=== PATIENT | female | born 1985 | race American Indian/Alaskan Native ===

== ENCOUNTER 2017-03-30 09:05 | Outpatient (CLI) | payer OTHER ==
--- NOTE | 2017-03-30 11:10 | Fluoroscopy Report ---
Hysterosalpingogram. History: Infertility. Procedure and findings. A vaginal speculum was inserted. The external os was prepped using Betadine. A small caliber catheter was inserted into the endometrial cavity. Omnipaque 300 was injected during fluoroscopic observation. The contour of the endometrial cavity is normal. There is opacification of the fallopian tubes with spillage into the peritoneal cavity bilaterally. Impression: Normal study.
== END 2017-03-30 09:06 | disposition home or self-care (01) ==
LOC: FLUORO 09:05
PROVIDERS: ATTEND Obstetrics & Gynecology Gynecology
DX: N97.9 Female infertility, unspecified (principal)
CPT/HCPCS: 58340; 74740; Q9967

== ENCOUNTER 2017-03-30 17:05 | Inpatient (IN) | payer OTHER ==
--- NOTE | 2017-03-30 17:57 | Emergency Department Report ---
Entered by GREGORY YANEZ, acting as scribe for NANCY CRUZ NP. Chief Complaint: Abdominal Pain Stated Complaint: STOMACH PAIN Time Seen by Provider: 03/30/17 17:46 - HPI History of Present Illness: 31 y/o female presents with constant, crampy and pressure-like, 10/10 solomon- umbilical abd pain that started earlier today after her hystereosalpingogram. Sx include nausea but pt denies vomiting. Medication includes Tylenol with no relief. LMP- 03/23/17 - ROS Review of Systems: +abd pain +n -v - Exam Vital Signs: Vital Signs 03/30/17 17:47 Temperature 99.9 F H Pulse Rate 99 H Respiratory 16 Rate Blood Pressure 111/80 O2 Sat by Pulse 100 Oximetry Physical Exam: abd: diffuse TTP MSE screening note: Focused history and physical exam performed. Due to findings the following was ordered: labs, ct Patient discussed with doctor:: CJ ALICEA ED Disposition for MSE Condition: Stable This documentation as recorded by the scribe,GREGORY YANEZ,accurately reflects the service I personally performed and the decisions made by ANTHONY razo TRACY M, NP.
[2017-03-30 18:36] LABS: Alanine Aminotransferase 18 units/L (7-56); Albumin 4.1 g/dL (3.9-5); Alkaline Phosphatase 54 units/L (35-129); Anion Gap 16 mmol/L; Blood Urea Nitrogen 8 mg/dL (7-17); Calcium 9.1 mg/dL (8.4-10.2); Carbon Dioxide 26 mmol/L (22-30); Chloride 99.5 mmol/L (98-107); Glucose 120 mg/dL (65-100); Potassium 3.8 mmol/L (3.6-5.0); Sodium 138 mmol/L (137-145); Total Protein 8.1 g/dL (6.3-8.2)
[2017-03-30 18:41] LABS: Basophils % (Auto) 0.2 % (0.0-1.8); Eosinophils % (Auto) 0.1 % (0.0-4.3); Hematocrit 36.1 % (30.3-42.9); Hemoglobin 11.6 gm/dl (10.1-14.3); Mean Corpuscular HGB Conc 32 % (30-34); Mean Corpuscular Hemoglobin 26 pg (28-32); Mean Corpuscular Volume 81 fl (79-97); Platelet Count 284 K/mm3 (140-440); Red Blood Count 4.43 M/mm3 (3.65-5.03); White Blood Count 12.1 K/mm3 (4.5-11.0)
[2017-03-30] MEDS ORDERED: ZOFRAN IV ONE (18:55)
[2017-03-30] MEDS ORDERED: DILAUDID IV ONE (18:55)
[2017-03-30] MEDS ORDERED: NACL 0.9% 1000 ML 1,000 ML IV ONE (18:55)
--- NOTE | 2017-03-30 19:45 | Cat Scan Report ---
FINAL REPORT EXAM: CT ABDOMEN PELVIS WO CON HISTORY: abd pain sp radiology procedure TECHNIQUE: CT abdomen and pelvis with oral and intravenous contrast PRIORS: None. FINDINGS: No acute abnormality identified in the lung bases. No focal abnormality identified within the liver parenchyma. The spleen demonstrates normal size and attenuation. No pancreatic abnormalities seen. The kidneys demonstrate symmetric contrast enhancement. Adrenal glands are unremarkable. No evidence of hydronephrosis. Abdominal aorta is normal in caliber. No pathologically enlarged lymph nodes are identified. No signs of free fluid or free air No evidence of small bowel dilatation. The appendix is identified and is normal in size no adjacent inflammatory change seen. There is contrast material within the urinary bladder. Small amount of contrast is seen within vagina and extending to the cervix. IMPRESSION: Contrast seen within the urinary bladder and small amount of contrast noted within the vagina. There is history of the recent radiology procedure. Please correlate with procedure performed. Given these findings there could be suspicion for vesicle vaginal fistula.
[2017-03-30 21:59] LABS: Bacteria,Urine 1+ /HPF (Negative); Bilirubin,Urine NEG (Negative); Blood,Urine NEG (Negative); Ketones,Urine NEG (Negative); Leukocyte Esterase,Urine NEG (Negative); Mucus,Urine FEW /HPF; Nitrite,Urine NEG (Negative); Protein,Urine <15 mg/dL mg/dL (Negative); Urobilinogen,Urine < 2.0 mg/dL (<2.0)
[2017-03-30 22:26] LABS: INR 0.98 (0.87-1.13); Partial Thromboplastin Time 26.9 Sec. (24.2-36.6)
[2017-03-30] MEDS ORDERED: SUBLIMAZE IV ONE (23:13)
[2017-03-30] MEDS ORDERED: REGLAN IV ONE (23:14)
--- NOTE | 2017-03-30 23:33 | Emergency Department Report ---
HPI - General Chief Complaint: Abdominal Pain Time Seen by Provider: 03/30/17 17:47 - HPI HPI: Room 8 The patient is a 31-year-old female presenting with a chief complaint of abdominal pain. The patient had a hysterosalpingogram performed at this Hospital earlier today at approximately 09:00. Patient states there were no consultations done procedure she went home and took a nap. Approximately 3 hours after the procedure she developed "extreme pain" periumbilically and in the epigastric region. Movement increases pain. The patient was told she should expect some vaginal bleeding and there was light spotting. Patient denies dysuria or fever. Patient is to nausea but denies vomiting or diarrhea. The patient states her pain was 12/10 prior to arrival she was administered pain medication before my evaluation. Patient states her pain is currently an 8 /10. Patient states she has not reached out to the ordering physician (Dr. Beverly) Location: [see above] Duration: [see above] Quality: "Extreme" Severity: 8/10 Modifying factors: Movement Increases pain Context: [see above] Mode of transportation: [not driving] ED Past Medical Hx - Past Medical History Previous Medical History?: No - Surgical History Past Surgical History?: No - Family History Family history: no significant - Social History Smoking Status: Former Smoker (none 6 years) Substance Use Type: None (denies illicit drug use), Alcohol (occasional) - Medications Home Medications: Home Medications Medication Instructions Recorded Confirmed Last Taken Type Ibuprofen [Motrin] 800 mg PO Q8HR PRN 03/30/17 03/30/17 03/30/17 History traMADol [Ultram] 50 mg PO Q4HR PRN 03/30/17 03/30/17 03/30/17 History ED Review of Systems ROS: Stated complaint: STOMACH PAIN Other details as noted in HPI Comment: All other systems reviewed and negative Constitutional: denies: chills, fever Eyes: denies: eye pain, eye discharge, vision change ENT: denies: ear pain, throat pain Respiratory: denies: cough, shortness of breath, wheezing Cardiovascular: denies: chest pain, palpitations Endocrine: no symptoms reported Gastrointestinal: abdominal pain, nausea. denies: vomiting Genitourinary: other (light vaginal spotting) Musculoskeletal: denies: back pain, joint swelling, arthralgia Skin: denies: rash, lesions Neurological: denies: headache, weakness, paresthesias Psychiatric: denies: anxiety, depression Hematological/Lymphatic: denies: easy bleeding, easy bruising Physical Exam - Physical Exam Vital Signs: Vital Signs 03/30/17 03/30/17 03/30/17 17:47 20:51 21:28 Temperature 99.9 F H Pulse Rate 99 H 72 Respiratory 16 18 12 Rate Blood Pressure 111/80 Blood Pressure 109/70 [Left] O2 Sat by Pulse 100 100 Oximetry Physical Exam: GENERAL: The patient is well-developed well-nourished female lying on stretcher not appearing to be in acute distress. [] HEENT: Normocephalic. Atraumatic. Extraocular motions are intact. Patient has moist mucous membranes. NECK: Supple. Trachea midline CHEST/LUNGS: Clear to auscultation. There is no respiratory distress noted. HEART/CARDIOVASCULAR: Regular. There is no tachycardia. There is no gallop rub or murmur. ABDOMEN: Abdomen is soft, with tenderness to palpation in epigastric right lower quadrant and left lower quadrant. Patient has normal bowel sounds. There is no abdominal distention. SKIN: There is no rash. There is no edema. There is no diaphoresis. NEURO: The patient is awake, alert, and oriented. The patient is cooperative. The patient has normal speech MUSCULOSKELETAL: There is no evidence of acute injury. ED Course Vital Signs 03/30/17 03/30/17 03/30/17 17:47 20:51 21:28 Temperature 99.9 F H Pulse Rate 99 H 72 Respiratory 16 18 12 Rate Blood Pressure 111/80 Blood Pressure 109/70 [Left] O2 Sat by Pulse 100 100 Oximetry - Consultations Consultation #1: 03/30/17 23:[address] Raymundo- will admit the patient to the hospital ED Medical Decision Making - Lab Data Result diagrams: 03/30/17 17:56 03/30/17 17:56 Laboratory Tests 03/30/17 03/30/17 03/30/17 17:56 17:56 17:56 WBC 12.1 H RBC 4.43 Hgb 11.6 Hct 36.1 MCV 81 MCH 26 L MCHC 32 RDW 17.0 H Plt Count 284 Lymph % (Auto) 5.8 L [place] % (Auto) 5.9 Eos % (Auto) 0.1 Baso % (Auto) 0.2 Lymph # 0.7 L [place] # 0.7 Eos # 0.0 Baso # 0.0 Seg Neutrophils % 88.0 H Seg Neutrophils # 10.6 H PT INR APTT Sodium 138 Potassium 3.8 Chloride 99.5 Carbon Dioxide 26 Anion Gap 16 BUN 8 Creatinine 0.5 L Estimated GFR > 60 BUN/Creatinine Ratio 16.00 Glucose 120 H Calcium 9.1 Total Bilirubin 0.20 AST 21 ALT 18 Alkaline Phosphatase 54 Total Protein 8.1 Albumin 4.1 Albumin/Globulin Ratio 1.0 HCG, Qual Negative Urine Color Urine Turbidity Urine pH Ur Specific [place] Urine Protein Urine Glucose (UA) Urine Ketones Urine Blood Urine Nitrite Urine Bilirubin Urine Urobilinogen Ur Leukocyte Esterase Urine WBC (Auto) Urine RBC (Auto) U Epithel Cells (Auto) Urine Bacteria (Auto) Urine Mucus 03/30/17 03/30/17 21:16 21:19 WBC RBC Hgb Hct MCV MCH MCHC RDW Plt Count Lymph % (Auto) [place] % (Auto) Eos % (Auto) Baso % (Auto) Lymph # [place] # Eos # Baso # Seg Neutrophils % Seg Neutrophils # PT 13.5 INR 0.98 APTT 26.9 Sodium Potassium Chloride Carbon Dioxide Anion Gap BUN Creatinine Estimated GFR BUN/Creatinine Ratio Glucose Calcium Total Bilirubin AST ALT Alkaline Phosphatase Total Protein Albumin Albumin/Globulin Ratio HCG, Qual Urine Color Yellow Urine Turbidity Cloudy Urine pH 7.0 Ur Specific [place] 1.029 Urine Protein <15 mg/dl Urine Glucose (UA) Neg Urine Ketones Neg Urine Blood Neg Urine Nitrite Neg Urine Bilirubin Neg Urine Urobilinogen < 2.0 Ur Leukocyte Esterase Neg Urine WBC (Auto) 1.0 Urine RBC (Auto) 8.0 U Epithel Cells (Auto) < 1.0 Urine Bacteria (Auto) 1+ Urine Mucus Few - Radiology Data Radiology results: report reviewed (CT abdomen and pelvis, hysterosalpingogram) , image reviewed (CT abdomen and pelvis) CT abdomen and pelvis (read by radiologist)-contrast seen within the urinary bladder and small amount of contrast noted within the vagina. There is history of the recent radiology procedure. Please correlate with procedure performed. Given these findings there could be suspicion for acicular vesicovaginal fistula. The appendix is identified and is normal in size no adjacent inflammatory change seen. Hysterosalpingogram (read by radiologist)-normal study. - Differential Diagnosis endometritis, postprocedure pain Critical care attestation.: If time is entered above; I have spent that time in minutes in the direct care of this critically ill patient, excluding procedure time. ED Disposition Clinical Impression: Other acute postprocedural pain, Acute abdominal pain, Leukocytosis Disposition: OP ADMIT IP TO THIS HOSP Is pt being admited?: Yes Does the pt Need Aspirin: No Condition: Fair Referrals: PRIMARY CARE, [Primary Care Provider] - 3-5 Days Time of Disposition: 23:49 (Dr. Raymundo notified)
[2017-03-30] MEDS ORDERED: DULCOLAX PR PRN (23:54)
[2017-03-30] MEDS ORDERED: MORPHINE IV PRN (23:54)
[2017-03-30] MEDS ORDERED: MILK OF MAGNESIA PO PRN (23:54)
[2017-03-30] MEDS ORDERED: TYLENOL PO PRN (23:54)
[2017-03-30] MEDS ORDERED: ZOFRAN IV PRN (23:54)
[2017-03-31] MEDS ORDERED: AMBIEN PO PRN (00:01)
[2017-03-31] MEDS: ROCEPHIN/NS 1 GM/50 ML 1 GM/50 ML BAG IV SCH ×2 (00:48→10:59)
[2017-03-31] MEDS: NACL 0.45% 1000 ML 1,000 ML IV SCH ×2 (01:53→09:46)
--- NOTE | 2017-03-31 01:54 | Short Stay Summary ---
Short Stay Documentation Narrative H&P: 31-year-old G0 who was admitted tonight after having a hysterosalpingogram done at the hospital today (which was read as normal with open tubes) and who presented to the emergency department with severe abdominal pain and minimal leukocytosis with a white count of 12 and no fever. In an abundance of caution , she is admitted for several courses of IV third generation cephalosporins and oral doxycycline for a presumptive diagnosis of a PID flareup. She denies any hx of STD or PID in the past but has had some vague abdominal pain recently. Other possibilities are incubating appendicitis or other abdominal viscus issue. Ct of abdomen and pelvis is completely normal with some contrast in bladder (from IV CT contrast) and some in vagina from hysterosalpingogram. By my abdominal exam she does not have a surgical abdomen at present but is moderately tender, no board-like spasm or rebound. Pelvic exam is deferred at present. From ED physician evaluation: The patient is a 31-year-old female presenting with a chief complaint of abdominal pain. The patient had a hysterosalpingogram performed at this hospital earlier today at approximately 09:00. Patient states there were no consultations done procedure she went home and took a nap. Approximately 3 hours after the procedure she developed "extreme pain" periumbilically and in the epigastric region. Movement increases pain. The patient was told she should expect some vaginal bleeding and there was light spotting. Patient denies dysuria or fever. Patient is to nausea but denies vomiting or diarrhea. The patient states her pain was 12/10 prior to arrival she was administered pain medication before my evaluation. Patient states her pain is currently an 8 /10. Patient states she has not reached out to the ordering physician (Dr. Beverly) ED Review of Systems ROS: Stated complaint: STOMACH PAIN Other details as noted in HPI Comment: All other systems reviewed and negative Constitutional: denies: chills, fever Eyes: denies: eye pain, eye discharge, vision change ENT: denies: ear pain, throat pain Respiratory: denies: cough, shortness of breath, wheezing Cardiovascular: denies: chest pain, palpitations Endocrine: no symptoms reported Gastrointestinal: abdominal pain, nausea. denies: vomiting Genitourinary: other (light vaginal spotting) Musculoskeletal: denies: back pain, joint swelling, arthralgia Skin: denies: rash, lesions Neurological: denies: headache, weakness, paresthesias Psychiatric: denies: anxiety, depression Hematological/Lymphatic: denies: easy bleeding, easy bruising Physical Exam: GENERAL: The patient is well-developed well-nourished female lying on stretcher not appearing to be in acute distress. [] HEENT: Normocephalic. Atraumatic. Extraocular motions are intact. Patient has moist mucous membranes. NECK: Supple. Trachea midline CHEST/LUNGS: Clear to auscultation. There is no respiratory distress noted. HEART/CARDIOVASCULAR: Regular. There is no tachycardia. There is no gallop rub or murmur. ABDOMEN: Abdomen is soft, with tenderness to palpation in epigastric right lower quadrant and left lower quadrant. Patient has normal bowel sounds. There is no abdominal distention. SKIN: There is no rash. There is no edema. There is no diaphoresis. NEURO: The patient is awake, alert, and oriented. The patient is cooperative. The patient has normal speech MUSCULOSKELETAL: There is no evidence of acute injury. - History Principal diagnosis: PID after hysterosalpingogram Past Medical History: No medical history (specifically she denies any hx of PID or STD although she has recently had some vague abdominal pain prior to procedure) Past Surgical History: No surgical history Social history: no significant social history - Allergies and Medications Current Medications: Allergies No Known Allergies Allergy (Verified 03/30/17 21:40) Home Medications Medication Instructions Recorded Confirmed Last Taken Type Ibuprofen [Motrin] 800 mg PO Q8HR PRN 03/30/17 03/30/17 03/30/17 History traMADol [Ultram] 50 mg PO Q4HR PRN 03/30/17 03/30/17 03/30/17 History Active Medications Acetaminophen (Tylenol) 650 mg PO Q4H PRN PRN Reason: Pain MILD(1-3)/Fever >100.5/LANDRUM Acetaminophen/Hydrocodone Bitart ([place] 5/325) 2 each PO Q6H PRN PRN Reason: Pain, Moderate (4-6) Bisacodyl (Dulcolax) [address] QDAY PRN PRN Reason: Constipation unrelieved by MOM Docusate Sodium (Colace) 100 mg PO BID HARRISON Sodium Chloride (Nacl 0.45% 1000 Ml) 1,000 mls @ 125 mls/hr IV DIRECT HARRISON Ceftriaxone Sodium (Rocephin/Ns 1 Gm/50 Ml) 1 gm in 50 mls @ 100 mls/hr IV Q12HR HARRISON PRN Reason: Protocol Last Admin: 03/31/17 00:48 Dose: 100 mls/hr Magnesium Hydroxide (Milk Of Magnesia) 30 ml PO Q4H PRN PRN Reason: Constipation Morphine Sulfate (Morphine) 4 mg IV Q4H PRN PRN Reason: Pain , Severe (7-10) Ondansetron HCl (Zofran) 4 mg IV Q8H PRN PRN Reason: N/V unrelieved by Reglan Zolpidem Tartrate (Ambien) 10 mg PO QHS PRN PRN Reason: Insomnia Last Admin: 03/31/17 01:50 Dose: 10 mg - Physical exam General appearance: no acute distress (moves in bed without much difficulty), well-nourished Integumentary: no rash HEENT: Atraumatic Breasts: deferred Gastrointestinal: tenderness ( mild all 4 quadrants, worse in lower quadrants), no distended, no guarding Female Genitourinary: deferred Extremities: no ischemia Neurological: Normal speech, Normal tone, Sensation intact - Disposition Condition at discharge: Fair Short Stay Discharge Plan Follow up with: PRIMARY CARE, [Primary Care Provider] - 3-5 Days
[2017-03-31] MEDS ORDERED: MOTRIN PO PRN (02:09)
[2017-03-31] MEDS: VIBRAMYCIN PO SCH ×2 (02:20→11:16)
[2017-03-31 07:46] LABS: Basophils % (Auto) 0.1 % (0.0-1.8); Eosinophils % (Auto) 0.5 % (0.0-4.3); Hematocrit 30.7 % (30.3-42.9); Mean Corpuscular HGB Conc 33 % (30-34); Mean Corpuscular Hemoglobin 27 pg (28-32); Mean Corpuscular Volume 81 fl (79-97); Platelet Count 240 K/mm3 (140-440); Red Blood Count 3.78 M/mm3 (3.65-5.03); Red Cell Distribution Width 16.6 % (13.2-15.2); White Blood Count 7.5 K/mm3 (4.5-11.0)
[2017-03-31 07:53] LABS: Anion Gap 15 mmol/L; Blood Urea Nitrogen 4 mg/dL (7-17); Calcium 8.2 mg/dL (8.4-10.2); Carbon Dioxide 23 mmol/L (22-30); Chloride 102.1 mmol/L (98-107); Glucose 80 mg/dL (65-100); Potassium 3.7 mmol/L (3.6-5.0); Sodium 136 mmol/L (137-145)
[2017-03-31] MEDS: NORCO 5/325 PO PRN ×2 (09:10→16:35)
[2017-03-31] MEDS ORDERED: COLACE PO SCH (10:00)
--- NOTE | 2017-03-31 13:57 | Discharge Summary ---
Providers - Providers Date of Admission: 03/30/17 23:35 Date of discharge: 03/31/17 Attending physician: YANICK MONGE Primary care physician: DIGITAL MEDIA DIRECTOR Hospitalization Condition: Good Pertinent studies: Abdominal pelvic CT scan Hospital course: Please see H&P for details. Patient CT scan revealed no significant abnormalities. During observation the patient pain decrease nausea decreased at time of my exam her abdomen was soft nonsurgical patient will be discharged with follow-up instructions Disposition: [id number] TO HOME OR SELFCARE - Discharge Diagnoses (1) Unspecified inflammatory disease of female pelvic organs and tissues Status: Acute Comment: Probably secondary to hysterosalpingogram (2) Acute abdominal pain Status: Acute (3) Leukocytosis Status: Acute Qualifiers: Leukocytosis type: L Core Measure Documentation - Palliative Care Palliative Care/ Comfort Measures: Not Applicable - Core Measures Any of the following diagnoses?: none Exam - Constitutional Vitals: Temp Pulse Resp BP Pulse Ox 98.8 F 76 20 110/84 97 03/31/17 12:35 03/31/17 12:35 03/31/17 12:35 03/31/17 12:35 03/31/17 00:49 General appearance: Present: no acute distress - Respiratory Respiratory effort: normal - Cardiovascular Rhythm: regular - Extremities Extremities: no ischemia, pulses intact, No edema - Abdominal General gastrointestinal: Present: soft, non-distended Female genitourinary: Present: deferred - Rectal Rectal Exam: deferred - Integumentary Integumentary: Present: clear, warm, dry - Psychiatric Psychiatric: appropriate mood/affect, intact judgment & insight - Neurologic Neurologic: moves all extremities Plan Activity: advance as tolerated Diet: regular Additional Instructions: Will contact Dr. Beverly for further instructions Follow up with: PRIMARY CARE, [Primary Care Provider] - 3-5 Days Prescriptions: oxyCODONE /ACETAMINOPHEN [Percocet 5/325 mg] 1 - 2 tab PO Q4H PRN #30 tablet PRN Reason: Pain, Moderate Doxycycline [Vibramycin CAP] 100 mg PO Q12HR #14 capsule Ondansetron [Zofran Odt] 4 mg PO Q8HR #10 tab.rapdis
[2017-03-31 17:24] VITALS: BP 100/52
== END 2017-03-31 17:45 | disposition home or self-care (01) | DRG 759 ==
LOC: ED 17:05 → OB 23:35
PROVIDERS: ADMIT Obstetrics & Gynecology; ATTEND Obstetrics & Gynecology
DX: N73.9 Female pelvic inflammatory disease, unspecified (principal); D72.829 Elevated white blood cell count, unspecified; Z87.891 Personal history of nicotine dependence
CPT/HCPCS: 36415; 74176; 80048; 80053; 81001; 84703; 85025; 85610; 85730; 96361; 96365; 96375; J0696; J1170; J2405; J2765; J3010; J7030